=== PATIENT | male | born 1995 | race Two or more races ===

== ENCOUNTER 2020-01-22 20:37 | Emergency (ER) | payer MEDICAID, OTHER ==
[~2020-01-22] VITALS: Ht 167.6 cm; Wt 72.6 kg
[~2020-01-22 20:37] MED LIST: NKM
[2020-01-22] MEDS ORDERED: IBUPROFEN600 M1 ORAL (21:34)
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
[2020-01-22 21:57] VITALS: BP 116/84
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
--- NOTE | 2020-01-23 10:02 | Diagnostic Imaging Report ---
Indication: Left ankle pain, trauma Technique: 3 views foot Comparison: none Findings: Fracture/subluxation of the ankle is best appreciated on ankle radiographs performed at same time. No acute foot fracture demonstrated. The joint spaces are preserved Impression: Positive for ankle fracture-please refer to separate ankle radiograph report No evidence of foot fracture
== END 2020-01-22 21:57 | disposition home or self-care (01) ==
LOC: EMR 21:00
DX: S82.62XA Displaced fracture of lateral malleolus of left fibula, initial encounter for closed fracture (principal); F12.90 Cannabis use, unspecified, uncomplicated; Y04.0XXA Assault by unarmed brawl or fight, initial encounter; Y93.9 Activity, unspecified; Y92.9 Unspecified place or not applicable
CPT/HCPCS: 29515; 73610; 73630; Z7502; 99283